=== PATIENT | male | born 1975 | race Caucasian/White ===

== ENCOUNTER 2023-05-02 16:30 | Outpatient (RCR) | payer OTHER, SELFPAY | END 2023-08-30 23:59 | disposition home or self-care (01) | PROVIDERS: PCP Family Medicine; Visit Provider Family Medicine | DX: I63.9 Cerebral infarction, unspecified (principal); I69.354 Hemiplegia and hemiparesis following cerebral infarction affecting left non-dominant side; Z51.89 Encounter for other specified aftercare | CPT/HCPCS: 97110; 97166; X5282 ==